=== PATIENT | female | born 1955 | race African-American/Black ===

== ENCOUNTER 2017-05-24 10:29 | Outpatient (CLI) | payer MEDICAID ==
--- NOTE | 2017-05-24 11:33 | Mammography Report ---
BONE DENSITY STUDY: DEFINITIONS: BMD = Bone Mineral Density T-score = BMD related to mean peak bone mass of young adult (mean expressed in Standard Deviation) Z-score = Age matched BMD expressed in SD World Health Organization (WHO) Diagnostic Criteria Normal T-score > -1 SD Osteopenia T-score between -1 and -2.4 SD Osteoporosis T-score -2.5 SD or below FINDINGS: The weighted average BMD of lumbar spine L1-L4 is 0.835 with a T-score of -1.9. The weighted average BMD of hip is0.842 with a T-score of -0.8. IMPRESSION: The patient's T-score is diagnostic for osteopenia and average relative risk for fracture. NOTE: BMD is not the only risk factor for fracture; also consider factors such as the patient's age, risk of falling, previous osteoporotic fracture, family history of osteoporotic fractures, current smoker, and low body weight. Toussaint's triangle is a region of interest in femur, predominantly of trabecular bone. It is not a true anatomic site, and [facility] does not recommend its use clinically.
== END 2017-05-24 10:30 | disposition home or self-care (01) ==
LOC: MAMMO 10:29
PROVIDERS: ATTEND Internal Medicine
DX: M85.88 Other specified disorders of bone density and structure, other site (principal); M81.0 Age-related osteoporosis without current pathological fracture
CPT/HCPCS: 77080

== ENCOUNTER 2017-12-17 10:26 | Outpatient (CLI) | payer OTHER ==
--- NOTE | 2017-12-18 11:28 | Mammography Report ---
BILATERAL DIGITAL SCREENING MAMMOGRAM WITH CAD: 12/17/17 10:26:00 CLINICAL: Routine screening.Breast cancer survivor status post right partial mastectomy in 2008. COMPARISON:04/17/11 FINDINGS: The breasts are mostly fatty. Right upper outer postsurgical benign scar with dystrophic calcifications and a biopsy clip. No mass, suspicious architectural distortion or suspicious calcifications. IMPRESSION: No mammographic evidence of malignancy. BI-RADS CATEGORY: 2 -- Benign RECOMMENDATION: Routine mammographic screening in one year. COMMENT: Patient follow-up letters are generated via our [employer] application.
== END 2017-12-17 10:27 | disposition home or self-care (01) ==
LOC: MAMMO 10:26
DX: Z12.31 Encounter for screening mammogram for malignant neoplasm of breast (principal); Z90.11 Acquired absence of right breast and nipple
CPT/HCPCS: 77067